=== PATIENT | female | born 1990 | race Caucasian/White ===

== ENCOUNTER 2022-10-29 14:43 | Emergency (ER) | payer OTHER ==
[~2022-10-29] VITALS: Ht 157.5 cm; Wt 59.2 kg
[2022-10-29 16:32] VITALS: BP 138/82
== END 2022-10-29 17:25 | disposition home or self-care (01) ==
LOC: ER 14:43
DX: K04.7 Periapical abscess without sinus (principal); F17.210 Nicotine dependence, cigarettes, uncomplicated